=== PATIENT | male | born 1955 | race Caucasian/White ===

== ENCOUNTER 2018-03-16 11:15 | Emergency (ER) | payer OTHER, SELFPAY ==
[2018-03-16] MEDS ORDERED: BUPIVACAINE 0.5% PF 10 ML VIAL ONE (14:50)
--- NOTE | 2018-03-16 15:25 | RAD REPORT ---
EXAM DESCRIPTION: RAD - Hand Right 3 View - 03/16/2018 3:05 pm CLINICAL HISTORY: Right hand pain FINDINGS: No fracture or dislocation is seen. Small radiopaque densities are present within soft tissues of the second and third digits. 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
--- NOTE | 2018-03-16 16:38 | ER ---
Nurse's Notes [facility] Name: Jg Mcdaniels Age: 63 yrs Sex: Male : 1955 Arrival Date: 03/16/2018 Time: 11:17 Bed 5 Private MD: None, None Diagnosis: Cutaneous abscess of right hand-PARONYCHIA Presentation: 03/16 11:40 Presenting complaint: Patient states: right 2nd finger swelling that has increased sv since yesterday, originally started about 6 months ago. Transition of care: patient was not received from another setting of care. Onset of symptoms was March 15, 2018. Risk Assessment: Do you want to hurt yourself or someone else? Patient reports no desire to harm self or others. Care prior to arrival: None. 11:40 Method Of Arrival: Ambulatory sv 11:40 Acuity: BETTINA 3 sv 16:14 Initial Sepsis Screen: Does the patient meet any 2 criteria? No. Patient's initial ph sepsis screen is negative. Does the patient have a suspected source of infection? Yes: Skin breakdown/wound. Triage Assessment: 11:42 General: Appears in no apparent distress. uncomfortable, Behavior is calm, cooperative, sv appropriate for age. Pain: Complains of pain in right index finger Pain currently is 4 out of 10 on a pain scale. Is continuous. EENT: No signs and/or symptoms were reported regarding the EENT system. Neuro: Level of Consciousness is awake, alert, obeys commands, Oriented to person, place, time, situation, Moves all extremities. Gait is steady, Speech is normal. Respiratory: Respiratory effort is even, unlabored, Respiratory pattern is regular, symmetrical. Derm: Skin is normal. Musculoskeletal: Range of motion: limited in DIP of right index finger and PIP of right index finger Swelling present in right index finger. Historical: - Allergies: 11:42 PENICILLINS; sv - Home Meds: 11:42 None [Active]; sv - PMHx: 11:42 None; sv - PSHx: 11:42 finger; sv - Immunization history:: Adult Immunizations up to date, Last tetanus immunization: < 10 years ago. - Social history:: Smoking status: Patient uses tobacco products, smokes one pack cigarettes per day. Patient uses alcohol, on a daily basis. - Ebola Screening: : No symptoms or risks identified at this time. Screenin:47 Abuse screen: Denies threats or abuse. Denies injuries from another. Nutritional ph screening: No deficits noted. Tuberculosis screening: No symptoms or risk factors identified. Fall Risk None identified. Assessment: 15:15 General: Appears in no apparent distress. comfortable, slender, Behavior is calm, ph cooperative, appropriate for age, Denies fever, feeling ill. Pain: Complains of pain in right index finger. Neuro: Level of Consciousness is awake, alert, obeys commands, Oriented to person, place, time, situation. Cardiovascular: Capillary refill < 3 seconds Patient's skin is warm and dry. Respiratory: Airway is patent Respiratory effort is even, unlabored. GI: Patient currently denies diarrhea, nausea, vomiting. Derm: Skin is healthy with good turgor, Skin is pink, warm \T\ dry. Musculoskeletal: Circulation, motion, and sensation intact. Range of motion: limited in DIP of right index finger and PIP of right index finger Swelling present in right index finger. Vital Signs: 11:42 BP 150 / 90; Pulse 77; Resp 16; Temp 98.3; Pulse Ox 99% ; Weight 68.04 kg; Height 5 ft. sv 9 in. (175.26 cm); Pain 4/10; 16:15 BP 154 / 82; Pulse 71; Resp 18; Temp 98.0; Pulse Ox 99% on R/A; ph 11:42 Body Mass Index 22.15 (68.04 kg, 175.26 cm) sv ED Course: 11:17 Patient arrived in ED. sb2 11:18 None, None is Private Physician. sb2 11:41 Triage completed. sv 11:43 Arm band placed on left wrist. sv 11:43 Patient placed in waiting room, Patient notified of wait time. sv 13:40 Assist provider with nerve block (digital) of right index finger Set up for procedure. ph Performed by Duc DELEON Patient tolerated poorly. 14:25 Duc Del Valle PA is PHCP. [facility] 14:26 Miky Gaitan MD is Attending Physician. jmm 14:46 Rhiannon Marcus RN is Primary Nurse. ph 15:03 Hand Right 3 View XRAY In Process Unspecified. EDMS 15:40 Patient did not have IV access during this emergency room visit. ph 15:47 Patient has correct armband on for positive identification. Bed in low position. Call light in reach. Side rails up X 1. Pulse ox on. NIBP on. Warm blanket given. 16:34 Ke Sow MD is Referral Physician. kevin Administered Medications: 15:40 Drug: Marcaine (0.5 %) 10 ml Volume: 10 ml; Route: Infiltration; ph 16:00 Follow up: Response: No adverse reaction; Pain is decreased ph Outcome: 16:37 Discharge ordered by MD. brown 17:05 Patient left the ED. ph 17:05 Discharged to home ambulatory, with significant other. ph 17:05 Condition: good 17:05 Discharge instructions given to patient, Instructed on discharge instructions, follow up and referral plans. medication usage, Demonstrated understanding of instructions, follow-up care, medications, Prescriptions given X 1. Signatures: Dispatcher [employer] Jada Al, RN RN Duc Mcbride PA PA jmm Hall, Patricia, RN RN ph Billeau, Sheri sb2
--- NOTE | 2018-03-16 16:38 | EDPHYS ---
Physician Documentation [facility] Name: Jg Mcdaniels Age: 63 yrs Sex: Male : 1955 Arrival Date: 03/16/2018 Time: 11:17 Bed 5 Private MD: None, None ED Physician Miky Gaitan HPI: 03/16 14:48 This 63 yrs old Male presents to ER via Ambulatory with complaints of Finger jmm Injury. 14:48 The patient or guardian reports pain, swelling. The complaints affect the dorsal aspect jmm of distal phalanx of right index finger, dorsal aspect of middle phalanx of right index finger, dorsal aspect of proximal phalanx of right index finger, palmar aspect of distal phalanx of right index finger, palmar aspect of middle phalanx of right index finger and palmar aspect of proxima; phalanx of right index finger. Onset: The symptoms/episode began/occurred gradually, 1 week(s) ago. Associated signs and symptoms: Pertinent negatives: fever. This is a 63 year old male with no chronic medical condition that presents to the ED with swelling to the right 2nd finger beginning 1 week ago. The patient states the swelling initially began around his nail plate and spread to his whole finger. The patient denies known injury or fever. Patient states he may have a retained splinter from an injury occurring 6 months ago. . Historical: - Allergies: 11:42 PENICILLINS; sv - Home Meds: 11:42 None [Active]; sv - PMHx: 11:42 None; sv - PSHx: 11:42 finger; sv - Immunization history:: Adult Immunizations up to date, Last tetanus immunization: < 10 years ago. - Social history:: Smoking status: Patient uses tobacco products, smokes one pack cigarettes per day. Patient uses alcohol, on a daily basis. - Ebola Screening: : No symptoms or risks identified at this time. ROS: 14:48 Constitutional: Negative for fever, chills, and weight loss. jmm 14:48 Cardiovascular: Negative for chest pain, palpitations, and edema, Respiratory: Negative for shortness of breath, cough, wheezing, and pleuritic chest pain. 14:48 MS/extremity: Positive for pain, swelling. 14:48 Skin: Positive for erythema. Exam: 14:48 Head/Face: atraumatic. jmm 14:48 Constitutional: The patient appears in no acute distress, alert, awake. 14:48 Cardiovascular: Rate: normal. 14:48 Respiratory: the patient does not display signs of respiratory distress. 14:48 Musculoskeletal/extremity: Nails: swelling noted to the entire right 2nd phalanx. 14:48 Skin: erythema noted to the right 2nd finger. 14:48 Neuro: Orientation: is normal, Mentation: is normal, Memory: is normal. 14:48 Psych: Behavior/mood is pleasant, cooperative. [facility] Vital Signs: 11:42 BP 150 / 90; Pulse 77; Resp 16; Temp 98.3; Pulse Ox 99% ; Weight 68.04 kg; Height 5 ft. sv 9 in. (175.26 cm); Pain 4/10; 16:15 BP 154 / 82; Pulse 71; Resp 18; Temp 98.0; Pulse Ox 99% on R/A; ph 11:42 Body Mass Index 22.15 (68.04 kg, 175.26 cm) sv Procedures: 14:48 I \T\ D: Incision and drainage was performed for an abscess of the right dorsal aspect of jmm distal phalanx of right index finger and right index fingernail Prepped with Betadine, Anesthetized with 0.5 % marcaine digital block. Incised with 18 gauge needle. Drained small amount purulent fluid. bloody fluid. the patient tolerated the procedure well. MDM: 14:44 Patient medically screened. [facility] 15:40 Data reviewed: vital signs, nurses notes, radiologic studies, plain films. [facility] 15:40 Counseling: I had a detailed discussion with the patient and/or guardian regarding: the [facility] presence of at least one elevated blood pressure reading (>120/80) during this emergency department visit. ED course: Purulent drainage was expressed from the finger. The patient will be prescribed antibiotics and given hand surgery follow up. I discussed with the patient the possibility of worsening infection with strict return precautions. The patient understood and agrees with the plan of care. . 03/16 14:45 Order name: Hand Right 3 View XRAY; Complete Time: 15:39 [facility] Administered Medications: 15:40 Drug: Marcaine (0.5 %) 10 ml Volume: 10 ml; Route: Infiltration; ph 16:00 Follow up: Response: No adverse reaction; Pain is decreased ph Disposition: 03/16/18 16:37 Discharged to Home. Impression: Cutaneous abscess of right hand - PARONYCHIA. - Condition is Stable. - Discharge Instructions: Paronychia. - Prescriptions for Ultram 50 mg Oral Tablet - take 1 tablet by ORAL route every 6 hours As needed; 30 tablet. Bactrim DS 800- 160 mg Oral Tablet - take 1 tablet by ORAL route every 12 hours for 10 days; 20 tablet. - Medication Reconciliation Form, Thank You Letter, Antibiotic Education, Prescription Opioid Use form. - Follow up: Ke Sow MD; When: 1 - 2 days; Reason: Recheck today's complaints. Addendum: 03/20/2018 12:04 Co-signature as Attending Physician, Miky Gaitan MD. g s Signatures: Dispatcher [employer] EDJada Hua, RN RN Duc Mcbride PA PA jmm Hall, Patricia, RN RN ph Starr, MD JERAMY Bolaños Corrections: (The following items were deleted from the chart) 03/16 17:05 16:37 03/16/2018 16:37 Discharged to Home. Impression: Cutaneous abscess of right hand ph - PARONYCHIA. Condition is Stable. Forms are Medication Reconciliation Form, Thank You Letter, Antibiotic Education, Prescription Opioid Use. Follow up: Ke Sow; When: 1 - 2 days; Reason: Recheck today's complaints. [facility]
== END 2018-03-16 17:05 | disposition home or self-care (01) ==
LOC: ER 11:15
PROC: 0H9FXZZ Drainage of Right Hand Skin, External Approach (ICD-10-PCS; principal; 2018-03-16)
DX: L03.011 Cellulitis of right finger (principal); F17.210 Nicotine dependence, cigarettes, uncomplicated; Z88.0 Allergy status to penicillin
CPT/HCPCS: 64450; 99284